=== PATIENT | female | born 1970 | race Caucasian/White ===

== ENCOUNTER → 2016-11-08 | Outpatient (CLI) | payer BC ==
[~2016-11-08] MED LIST: EPP3/2 IM; IBUP-1050 PO; METH4PAK PO; ONDA4TAB10 SL; OPTIRAY 320 IV PRN; TRAM-10 PO
--- NOTE | 2016-11-08 15:37 | DIAGNOSTIC IMAGING REPORT ---
ABDOMEN AND PELVIS CT WITH IV AND ORAL CONTRAST CT DOSE: 355.26 mGy.cm HISTORY: Pain. Nausea. LUQ PAIN TECHNIQUE: Multiaxial CT images of the abdomen and pelvis were performed following the use of intravenous and oral contrast. COMPARISON STUDY: 03/26/2014 FINDINGS: Lung bases are clear. Liver spleen and pancreas are uniform in appearance. Kidneys negative for calcification or hydronephrosis. 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 There are no obstructive characteristics. Bladder is midline. No significant adenopathy involving the abdomen pelvis or inguinal regions. IMPRESSION: No acute process of the abdomen or pelvis. Electronically signed by: Arias Wiley M.D. 11/08/2016 3:36 PM Dictated Date/Time: 11/08/2016 3:32 PM
== END | disposition home or self-care (01) ==
LOC: C.CTS 14:52
PROVIDERS: ATTEND Family Medicine
DX: R10.12 Left upper quadrant pain (principal); M53.3 Sacrococcygeal disorders, not elsewhere classified

== ENCOUNTER 2017-01-23 16:11 | Emergency (ER) | payer BC ==
[~2017-01-23] VITALS: Ht 175.3 cm; Wt 75.5 kg
[~2017-01-23 16:11] MED LIST changes: -METH4PAK PO; -ONDA4TAB10 SL; -OPTIRAY 320 IV PRN; -TRAM-10 PO
[2017-01-23 16:22] VITALS: BP 139/79; PULSE 71; TEMP 36.7; O2SAT 98; Ht 175.3 cm; Wt 75.5 kg
[2017-01-23] MEDS ORDERED: METH4PAK PO (17:21)
[2017-01-23] MEDS ORDERED: ONDA4TAB10 SL (17:21)
[2017-01-23] MEDS ORDERED: TRAM-10 PO (17:21)
--- NOTE | 2017-01-23 19:21 | EMERGENCY ROOM VISIT NOTE ---
History First contact with patient: 16:37 Chief Complaint: NECK PAIN Stated Complaint: NECK/SHOULDER PAIN History of Present Illness The patient is a 46 year old female who presents to the Emergency Room with her with complaints of right sided neck stiffness and pain since Monday. The patient denies any known injury. She was seen by her chiropractor and sent to the emergency department for further evaluation. The patient reports that the pain extends into the posterior shoulder and scapular region. She also has pain extending into the third, fourth and fifth fingers. The patient reports a history of chronic lower back pain, but has never had any problems with her neck. She denies any headache or blurred vision. She reports that her chiropractor also noticed a bubble on her left eye. The patient reports that she has had this before in the past, and attributes it to exposure to cat hair. She also has some seasonal allergies as well. She denies any drainage from the eye or eye discomfort. She currently rates her neck discomfort a 9 out of 10. Review of Systems 10 system review was performed and was negative except for pertinent positives and negatives as indicated in history of present illness Past Medical/Surgical History Medical Problems: (1) Allergy To Insects (2) Lumbago (3) Ovarian Cyst Nec/Nos Surgical Problems: (1) Tubal Ligation Status Family History FH: cancer FH: diabetes mellitus FH: kidney disease Social History Smoking Status: Former Smoker Alcohol Use: occasionally Marital Status: Occupation Status: employed Current/Historical Medications Scheduled Epinephrine (Epipen), 0.3 MG IM UD Ibuprofen (Advil), 400-600 MG PO Q6H Methylprednisolone (Medrol Dosepak), 0 PO DAILY Ondasetron Odt (Zofran Odt), 4 MG SL Q6H Scheduled PRN Tramadol (Ultram), 1-2 TAB PO Q4H PRN for Pain Allergies Coded Allergies: BEE STING (Verified Allergy, Unknown, THROAT SWELLS, SOB, 06/14/14) Physical Exam Vital Signs Date Time Temp Pulse Resp B/P (MAP) Pulse Ox O2 Delivery O2 Flow Rate FiO2 01/23/17 16:22 36.7 71 18 139/79 98 Room Air Pain Rating (0-10): 3.0 Physical Exam CONSTITUTIONAL: Healthy and well nourished. Alert and oriented X 3 with positive affect. Patient appears in mild discomfort. HEENT: Normocephalic, atraumatic. Pupils equal, round and reactive. His emanation of the left eye shows a small area of conjunctival edema at 7:00. There is no evidence for hyphema. Conjunctiva is not injected, and sclera is anicteric. EOMs intact without discomfort. NECK: The patient has generalized cervical muscular tenderness to palpation. No focal tenderness to palpation or step-offs to the central cervical spine. Patient has reproducible right shoulder and radicular symptoms with left lateral gaze.. No JVD or carotid bruits. RESPIRATORY: Clear to auscultation bilaterally with no wheezing, crackles, rhonchi or stridor. CARDIOVASCULAR: Regular rate and rhythm with no murmurs, rubs or gallops. MUSCULOSKELETAL: The patient has additional mild intrascapular tenderness to palpation, along with mild tenderness of the right trapezius muscle. No focal tenderness through the central thoracic spine. 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 Distal pulses are intact. INTEGUMENTARY: No rash or other significant dermatologic conditions noted. NEUROLOGIC: No focal neurologic deficits noted. Right hand median, radial and ulnar motor and sensory are intact. Medical Decision & Procedures ED Course Patient history and physical exam were performed. Nurse's notes were reviewed. The patient refused any analgesics or imaging studies while in the emergency department. The patient was advised that her history and physical exam findings are consistent with an acute cervical radiculitis. The patient refuses any prescription narcotic analgesics. I did suggest a soft cervical collar, Medrol Dosepak and Ultram as needed for pain. The patient reports that she has tried Ultram before in the past with nausea. She was provided a prescription for Zofran to try to help prevent nausea. Otherwise, she was encouraged to alternate ibuprofen and Tylenol for pain relief. I did suggest that she follow-up with her family doctor within the next week if symptoms are not significantly improving. The patient was also encouraged to intermittently apply a cool compress to the eye and take an antihistamine as needed for additional relief. The patient was happy with plan of care, voice understanding of all discharge instructions, and rated her pain a 3 out of 10 at the time of discharge, still refusing any analgesics while in the emergency department. Medical Decision Impression Primary Impression: Cervical radiculopathy at C7 Additional Impression: Allergic conjunctivitis, left eye Departure Information Dispostion Home / Self-Care Condition GOOD Prescriptions Ondasetron Odt (ZOFRAN ODT) 4 Mg Tab 4 MG SL Q6H for Nausea, #10 TAB Prov: Joel Barrientos PA 01/23/17 Methylprednisolone (MEDROL DOSEPAK) 4 Mg Adolfo 0 PO DAILY, #1 PKT Prov: Joel Barrientos PA 01/23/17 Tramadol (Ultram) 50 Mg Tab 1-2 TAB PO Q4H Y for Pain, #20 TAB For Initial Treatment Prov: Joel Barrientos PA 01/23/17 Forms HOME CARE DOCUMENTATION FORM, IMPORTANT VISIT INFORMATION Patient Instructions [facility] Additional Instructions Intermittently apply ice to neck as instructed. Wear soft collar as needed for additional relief. Ibuprofen 600 mg and/or Tylenol 1000 mg every 8 hours. You may also alternate these medications for more effective pain relief: Ibuprofen --4 HRS--> Tylenol --4 HRS--> ibuprofen --4 HRS--> Tylenol .... Ultram as prescribed as needed for worse pain. Zofran ODT if needed for nausea. Complete Medrol Dosepak as prescribed. Follow-up with your family doctor as needed for any persistent neck symptoms. Intermittently apply a cool compress/ice pack to the high as needed for conjunctival swelling. You may also take an antihistamine such as Claritin, Marixa or Zyrtec for additional relief. Problem Qualifiers
== END 2017-01-23 17:44 | disposition home or self-care (01) ==
LOC: C.EDB 16:12 → C.EDD 17:44
DX: M54.12 Radiculopathy, cervical region (principal); H10.12 Acute atopic conjunctivitis, left eye; Z83.3 Family history of diabetes mellitus; Z87.891 Personal history of nicotine dependence

== ENCOUNTER → 2017-07-11 | Outpatient (CLI) | payer BC ==
[~2017-07-11] MED LIST changes: +ONDA4TAB10 SL; +TRAM-10 PO
--- NOTE | 2017-07-11 14:33 | MAMMOGRAPHY REPORT ---
BILATERAL DIGITAL SCREENING MAMMOGRAM TOMOSYNTHESIS WITH CAD: 07/11/2017 CLINICAL HISTORY: Routine screening. The patient reported to the technologist that she has left nadege st itching and burning sensation on and off for the last year. TECHNIQUE: Breast tomosynthesis in addition to standard 2D mammography was performed. Current study was also evaluated with a Computer Aided Detection (CAD) system. COMPARISON: Comparison is made to exams dated: 09/25/2014 mammogram, 09/25/2012 mammogram, 09/24/2013 mamm ogram, 09/21/2012 mammogram, 09/20/2011 mammogram - [facility], and 11/08/2007. BREAST COMPOSITION: There are scattered areas of fibroglandular density in both breasts. FINDINGS: No suspicious masses, calcifications, or areas of architectural distortion are noted in ei ther breast. There has been no significant interval change compared to prior exams. A few scattered bilateral benign-appearing calcifications are not significantly changed. Asymmetry in the left media l anterior breast on the cc view is stable compared to multiple prior exams including the 2013 and 09 08 exams. IMPRESSION: ACR BI-RADS CATEGORY 2: BENIGN There is no mammographic evidence of malignancy. A 1 year screening mammogram is recommended. Also r ecommend clinical follow-up for intermittent left breast itching/burning sensation. The patient will receive written notification of the results. Approximately 10% of breast cancers are not detected with mammography. A negative mammographic report should not delay biopsy if a clinically suggestive mass is present. Sarah Burger M.D. /:07/11/2017 12:42:42 Criminal Justice Department Chair: Sara Foster M, [facility] letter sent: Normal 1/2 BI-RADS Code: ACR BI-RADS Category 2: Benign
== END | disposition home or self-care (01) ==
LOC: C.MAMM 10:38
PROVIDERS: ATTEND Obstetrics & Gynecology
DX: Z12.31 Encounter for screening mammogram for malignant neoplasm of breast (principal)